=== PATIENT | female | born 1975 | race Two or more races ===

== ENCOUNTER 2018-03-29 17:40 | Emergency (ER) | payer OTHER ==
[~2018-03-29] VITALS: Ht 165.1 cm; Wt 63.5 kg
[2018-03-29 18:05] VITALS: BP 122/63
[2018-03-29 18:57] LABS: Basophils # (auto) 0 uL; Eosinophils # (auto) 0.1 uL; Hemoglobin 7.1 g/dL (12.2-16.2); Lymphocytes # (auto) 1.1 uL; Monocytes # (auto) 0.4 uL; White Blood Cell 3.6 10^3/uL (4.4-10.8)
[2018-03-29 19:00] LABS: Basophils % (auto) 0.6 % (0.0-2.0); Hematocrit 24.1 % (36.0-46.0); Lymphocytes % (auto) 30.4 % (10.0-50.0); Mean Corpuscular Hgb Conc. 29.3 g/dL (32.0-36.0); Mean Corpuscular Volume 61.3 fL (80.0-100.0); Monocytes % (auto) 10.6 % (0.0-12.0); Neutrophils % (auto) 56.4 % (37.0-80.0); Platelet Count (auto) 286 10^3/uL (140-450); Red Blood Cells 3.92 10^6/uL (4.0-5.20)
[2018-03-29 19:03] LABS: Red Cell Distribution Width 20.2 % (11.8-14.3)
[2018-03-29 19:17] LABS: Albumin 3.6 g/dL (3.4-5.0); BUN/Creatinine Ratio 17.7; Calcium 8.2 mg/dL (8.5-10.1); Potassium 3.9 mmol/L (3.5-5.1)
[2018-03-29 19:19] LABS: Bilirubin, Total 0.3 mg/dL (0.2-1.0); Total Protein 7.6 g/dL (6.4-8.2)
[2018-03-29 20:55] LABS: Urine Bacteria NONE SEEN /hpf (None Seen); Urine Blood 2+ /uL (Negative); Urine Mucus FEW (None Seen); Urine Specific Gravity 1.028 (1.001-1.035); Urine WBC 2 /hpf (0 - 5)
== END 2018-03-29 23:15 | disposition left against medical advice (07) ==
LOC: ER 17:40
DX: R19.7 Diarrhea, unspecified (principal); Z53.21 Procedure and treatment not carried out due to patient leaving prior to being seen by health care provider
CPT/HCPCS: 36415; 80053; 81001; 85025

== ENCOUNTER 2018-03-30 13:11 | Observation (INO) | payer OTHER ==
[~2018-03-30] VITALS: Ht 165.1 cm; Wt 63.5 kg
[2018-03-30] VITALS (8 sets, daily range): BP systolic 112–122; BP diastolic 67–85
[2018-03-30 14:13] LABS: Basophils # (auto) 0 uL; Eosinophils # (auto) 0.1 uL; Mean Corpuscular Volume 60.9 fL (80.0-100.0); Monocytes # (auto) 0.3 uL; Neutrophils # (auto) 3.5 uL
[2018-03-30 14:15] LABS: Basophils % (auto) 0.6 % (0.0-2.0); Eosinophils % (auto) 1.3 % (0.0-7.0); Hemoglobin 7.3 g/dL (12.2-16.2); Lymphocytes % (auto) 20.6 % (10.0-50.0); Mean Corpuscular Hemoglobin 17.9 pg (28.0-32.0); Mean Corpuscular Hgb Conc. 29.4 g/dL (32.0-36.0); Monocytes % (auto) 5.7 % (0.0-12.0); Neutrophils % (auto) 71.8 % (37.0-80.0); Platelet Count (auto) 287 10^3/uL (140-450); Red Cell Distribution Width 19.6 % (11.8-14.3); White Blood Cell 4.9 10^3/uL (4.4-10.8)
[2018-03-30] MEDS ORDERED: SODIUM CHLORIDE 0.9% 1,000 ML IVB ONE (14:27)
[2018-03-30 14:29] LABS: Albumin 3.6 g/dL (3.4-5.0); BUN/Creatinine Ratio 14.5; Bilirubin, Total 0.3 mg/dL (0.2-1.0); Calcium 8.3 mg/dL (8.5-10.1); Potassium 3.6 mmol/L (3.5-5.1); Total Protein 7.7 g/dL (6.4-8.2)
[2018-03-30 15:37] LABS: INR 0.97 (0.9-1.15); Partial Thromboplastin Time 21.8 sec (23.78-33.04); Prothrombin Time 10.4 sec (9.27-12.13)
[2018-03-30] MEDS ORDERED: diphenhdrAMINE HCL 50 MG/1 ML VL IM ONE (17:30)
[2018-03-30 23:01] LABS: Hematocrit 27.4 % (36.0-46.0); Hemoglobin 8.5 g/dL (12.2-16.2)
[2018-03-31 01:30] VITALS: BP 115/72
== END 2018-03-31 02:10 | disposition home or self-care (01) | DRG 663 ==
LOC: ER 13:11 → OVERFLOW 13:12 → ER 03-31 02:02
PROVIDERS: ADMIT Family Medicine; ATTEND Family Medicine
DX: D50.8 Other iron deficiency anemias (principal); D21.9 Benign neoplasm of connective and other soft tissue, unspecified; Z82.49 Family history of ischemic heart disease and other diseases of the circulatory system
CPT/HCPCS: 36415; 71045; 76856; 80053; 83735; 84702; 85014; 85018; 85025; 85610; 85730; 86850; 86900; 86901; 86920; 96360; 96372; 99285; G0378; J1200; J7030; P9016